=== PATIENT | male | born 1960 | race Caucasian/White ===

== ENCOUNTER → 2016-12-10 11:59 | Emergency (ER) | payer SELFPAY | END | disposition left against medical advice (07) | LOC: E/R 11:59 | DX: Z53.21 Procedure and treatment not carried out due to patient leaving prior to being seen by health care provider (principal) ==

== ENCOUNTER 2017-09-24 10:14 | Emergency (ER) | END 2017-09-24 17:00 | disposition home or self-care (01) ==

== ENCOUNTER 2017-09-27 03:16 | Emergency (ER) | END 2017-09-27 10:15 | disposition home or self-care (01) ==